=== PATIENT | male | born 1955 | race Caucasian/White ===

== ENCOUNTER 2021-09-06 10:01 | Observation (INO) ==
[2021-09-06] MEDS ORDERED: Lactated Ringers 1000 ml BAG 1,000 ML IV ONE (10:04)
[2021-09-06] MEDS ORDERED: levETIRAcetam 1000MG IVPREMIX 1,000 MG/100 ML BAG IVPB ONE (10:06)
[2021-09-06 10:16] LABS: Hematocrit 50 % (42-52); Hemoglobin 17.1 g/dL (14.0-18.0); Mean Corpuscular HGB Conc 35 g/dL (31-36); Mean Corpuscular Hemoglobin 31 pg (27-31); Mean Corpuscular Volume 89 fL (80-94); Mean Platelet Volume 6.9 fL (7.4-10.4); Platelet Count 361 10^3/uL (150-450); Red Blood Count 5.56 10^6 /uL (4.18-5.48); Red Cell Distribution Width 14 % (10-15); White Blood Count 14.9 10^3/uL (3.5-10.8)
[2021-09-06 10:35] LABS: Albumin 3.9 g/dL (3.2-5.2); Albumin/Globulin Ratio 1.5 (1-3); Calcium 9.4 mg/dL (8.6-10.3); Globulin 2.6 g/dL (2-4); Potassium 3.7 mmol/L (3.5-5.0); Total Protein 6.5 g/dL (6.4-8.9); eGFR CKD-EPI 85.1 (>60)
[2021-09-06 11:22] LABS: ABS Basophils 0.1 10^3/ul (0-0.2); ABS Eosinophils 0.1 10^3/ul (0-0.6); ABS Lymphocytes 2.5 10^3/ul (1.0-4.8); ABS Monocytes 1.3 10^3/ul (0-0.8); Eosinophil % 0.4 %; Lymphocyte % 16.7 %
[2021-09-06] MEDS ORDERED: NS 0.9% 1000 ml BAG 1,000 ML IV ONE (12:49)
[2021-09-06] MEDS ORDERED: Ondansetron 4 mg VIAL 2 MG/ML 2 ml VIAL IV PRN (13:33)
[2021-09-06] MEDS ORDERED: NS 0.9% 1000 ml BAG 1,000 ML IV SCH (13:45)
[2021-09-06 14:59] LABS: Rapid COVID-19 Molecular Undetected (Undetected)
[2021-09-06 16:25] LABS: Calcium 7.8 mg/dL (8.6-10.3); Potassium 3.4 mmol/L (3.5-5.0); eGFR CKD-EPI 99.2 (>60)
[2021-09-07 06:24] LABS: Hematocrit 46 % (42-52); Hemoglobin 15.8 g/dL (14.0-18.0); Mean Corpuscular HGB Conc 34 g/dL (31-36); Mean Corpuscular Hemoglobin 31 pg (27-31); Mean Corpuscular Volume 91 fL (80-94); Mean Platelet Volume 7.2 fL (7.4-10.4); Platelet Count 233 10^3/uL (150-450); Red Blood Count 5.08 10^6 /uL (4.18-5.48); Red Cell Distribution Width 14 % (10-15); White Blood Count 11.5 10^3/uL (3.5-10.8)
[2021-09-07 06:39] LABS: eGFR CKD-EPI 102.5 (>60)
[2021-09-07 08:38] LABS: RBC Morphology Normal (Normal)
[2021-09-07 08:39] LABS: ABS Eosinophils 0.1 10^3/ul (0-0.6); ABS Monocytes 0.8 10^3/ul (0-0.8); ABS Neutrophils 8.6 10^3/ul (1.5-7.7); Eosinophil % 0.6 %; Lymphocyte % 17.4 %
[2021-09-07] MEDS ORDERED: Multivitamins/Minerals TAB PO SCH (09:00)
[2021-09-07 15:51] VITALS: BP 97/59
== END 2021-09-07 17:15 | disposition home or self-care (01) ==
LOC: ED 10:01 → SSU 10:01 → EDHOLD 10:01 → SSU 15:33
PROVIDERS: ADMIT Hospitalist; ATTEND Internal Medicine

== ENCOUNTER 2021-10-14 09:42 | Inpatient (IN) ==
[2021-10-14 10:09] LABS: Hematocrit 48 % (42-52); Hemoglobin 16.4 g/dL (14.0-18.0); Mean Corpuscular HGB Conc 34 g/dL (31-36); Mean Corpuscular Hemoglobin 31 pg (27-31); Mean Corpuscular Volume 90 fL (80-94); Mean Platelet Volume 6.3 fL (7.4-10.4); Platelet Count 290 10^3/uL (150-450); Red Blood Count 5.34 10^6 /uL (4.18-5.48); Red Cell Distribution Width 15 % (10-15)
[2021-10-14 10:27] LABS: ALT 30 U/L (7-52); AST 20 U/L (13-39); Albumin 3.9 g/dL (3.2-5.2); Albumin/Globulin Ratio 1.3 (1-3); Alkaline Phosphatase 75 U/L (35-149); Anion Gap 9 mmol/L (2-11); Blood Urea Nitrogen 13 mg/dL (6-24); C Reactive Protein 49.38 mg/L (<8.01); CO2 Carbon Dioxide 30 mmol/L (22-32); Calcium 9.4 mg/dL (8.6-10.3); Chloride 93 mmol/L (101-111); Creatine Kinase 12 U/L (10-223); Globulin 2.9 g/dL (2-4); Glucose 142 mg/dL (70-100); Potassium 3.9 mmol/L (3.5-5.0); Sodium 132 mmol/L (135-145); Total Protein 6.8 g/dL (6.4-8.9); eGFR CKD-EPI 70.3 (>60)
[2021-10-14 10:29] LABS: Activated Partial Thrombo Time 33.8 seconds (26.0-38.0)
[2021-10-14] MEDS ORDERED: NS 0.9% 1000 ml BAG 1,000 ML IV ONE ×2 (11:15→15:02)
[2021-10-14 11:22] LABS: ABS Basophils 0.1 10^3/ul (0-0.2); ABS Eosinophils 0.1 10^3/ul (0-0.6); ABS Lymphocytes 2.6 10^3/ul (1.0-4.8); ABS Monocytes 0.5 10^3/ul (0-0.8); ABS Neutrophils 5.8 10^3/ul (1.5-7.7); Eosinophil % 0.6 %; Lymphocyte % 28.8 %; Nucleated Red Blood Cells % 0.1
[2021-10-14] MEDS ORDERED: Iohexol 350 (CONTRAST) 500 ML MDV IV ONE (12:22)
[2021-10-14] MEDS ORDERED: Enoxaparin 100 MG/ML SYR SUBCUT ONE (14:03)
[2021-10-14 14:13] LABS: Urine Appearance Cloudy; Urine Bilirubin Negative (Negative); Urine Blood 1+ (Negative); Urine Color Yellow; Urine Glucose Negative (Negative); Urine Ketones Negative (Negative); Urine Nitrite Negative (Negative); Urine Protein Negative (Negative); Urine Specific Gravity 1.017 (1.002-1.030); Urine Urobilinogen Negative (Negative)
[2021-10-14 14:19] LABS: Urine Bacteria 2+ (Absent); Urine Red Blood Cell 1+(3-5/hpf) (Absent); Urine Squamous Epithelial Cell Present (Absent); Urine White Blood Cell 3+(>20/hpf) (Absent)
[2021-10-14] MEDS ORDERED: cefTRIAXone 1 gm/50 mL NS BAG 1 GM/50 ML BAG IV ONE (14:27)
[2021-10-14] MEDS ORDERED: Lactated Ringers 1000 ml BAG 1,000 ML IV SCH (17:00)
[2021-10-14] MEDS ORDERED: GRANISETRON HCL 1 MG PO SCH ×3 (20:20→21:00)
[2021-10-14] MEDS ORDERED: TEMOZOLOMIDE 140 MG PO SCH ×2 (21:00)
[2021-10-14] MEDS ORDERED: TEMOZOLOMIDE 20 MG PO SCH ×3 (21:00)
[2021-10-14] MEDS ORDERED: Enoxaparin 100 MG/ML SYR SUBCUT SCH (23:00)
[2021-10-15] MEDS: Enoxaparin 100 MG/ML SYR SUBCUT SCH ×2 (01:24→12:37)
[2021-10-15 06:37] LABS: Hematocrit 46 % (42-52); Hemoglobin 15.6 g/dL (14.0-18.0); Mean Corpuscular HGB Conc 34 g/dL (31-36); Mean Corpuscular Hemoglobin 31 pg (27-31); Mean Corpuscular Volume 91 fL (80-94); Mean Platelet Volume 6.3 fL (7.4-10.4); Platelet Count 242 10^3/uL (150-450); Red Blood Count 5.08 10^6 /uL (4.18-5.48); Red Cell Distribution Width 15 % (10-15); White Blood Count 6.4 10^3/uL (3.5-10.8)
[2021-10-15 06:39] LABS: ABS Eosinophils 0.1 10^3/ul (0-0.6); ABS Lymphocytes 1.7 10^3/ul (1.0-4.8); ABS Monocytes 0.5 10^3/ul (0-0.8); ABS Neutrophils 4.1 10^3/ul (1.5-7.7); Eosinophil % 1.1 %; Lymphocyte % 27.1 %; Nucleated Red Blood Cells % 0.1
[2021-10-15 06:46] LABS: Calcium 9.5 mg/dL (8.6-10.3); Potassium 4.1 mmol/L (3.5-5.0)
[2021-10-15 06:51] LABS: eGFR CKD-EPI 105.2 (>60)
[2021-10-15 11:49] VITALS: BP 123/79
[2021-10-15] MEDS ORDERED: cefTRIAXone 1 gm/50 mL NS BAG 1 GM/50 ML BAG IVPB SCH ×2 (14:08→15:00)
== END 2021-10-15 17:15 | disposition home or self-care (01) | DRG 134 ==
LOC: ED 09:42 → EDHOLD 16:59 → MEDTELE 20:25
PROVIDERS: ADMIT Student in an Organized Health Care Education/Training Program; ATTEND Student in an Organized Health Care Education/Training Program

== ENCOUNTER 2021-10-15 23:49 | Observation (INO) ==
[2021-10-16 00:24] LABS: Hematocrit 49 % (42-52); Hemoglobin 16.9 g/dL (14.0-18.0); Mean Corpuscular HGB Conc 34 g/dL (31-36); Mean Corpuscular Hemoglobin 31 pg (27-31); Mean Corpuscular Volume 90 fL (80-94); Mean Platelet Volume 6.3 fL (7.4-10.4); Platelet Count 293 10^3/uL (150-450); Red Blood Count 5.48 10^6 /uL (4.18-5.48); Red Cell Distribution Width 14 % (10-15); White Blood Count 6.1 10^3/uL (3.5-10.8)
[2021-10-16 00:25] LABS: ABS Lymphocytes 1.5 10^3/ul (1.0-4.8); ABS Monocytes 0.4 10^3/ul (0-0.8); ABS Neutrophils 4.1 10^3/ul (1.5-7.7); Eosinophil % 0.7 %; Lymphocyte % 23.9 %; Nucleated Red Blood Cells % 0.3
[2021-10-16 00:40] LABS: Albumin 4.3 g/dL (3.2-5.2); Albumin/Globulin Ratio 1.3 (1-3); Calcium 9.7 mg/dL (8.6-10.3); Globulin 3.3 g/dL (2-4); Magnesium 1.9 mg/dL (1.9-2.7); Potassium 3.7 mmol/L (3.5-5.0); Total Bilirubin 0.5 mg/dL (0.2-1.0); Total Protein 7.6 g/dL (6.4-8.9); eGFR CKD-EPI 78.4 (>60)
[2021-10-16 00:44] LABS: INR 1.04 (0.86-1.15)
[2021-10-16 01:12] LABS: TSH Ultra Thyroid Stim Horm 2.16 mcIU/mL (0.34-5.60)
[2021-10-16] MEDS ORDERED: Ondansetron 4 mg VIAL 2 MG/ML 2 ml VIAL IV ONE (02:45)
[2021-10-16] MEDS ORDERED: [UNRECOGNIZED DRUG - OTHER] IVPB ONE (04:06)
[2021-10-16] MEDS ORDERED: NS 0.9% 1000 ml BAG 1,000 ML IV SCH (04:45)
[2021-10-16] MEDS ORDERED: Enoxaparin 100 MG/ML SYR SUBCUT SCH (08:00)
[2021-10-16] MEDS ORDERED: levETIRAcetam 1000MG IVPREMIX 1,000 MG/100 ML BAG IVPB SCH (09:00)
[2021-10-16 16:12] VITALS: BP 123/83
[2021-10-16] MEDS ORDERED: levETIRAcetam 500 MG IVPREMIX 500 MG/100 ML BAG IV SCH (17:00)
== END 2021-10-16 16:16 | disposition home or self-care (01) ==
LOC: ED 23:49 → EDHOLD 23:49
PROVIDERS: ADMIT Student in an Organized Health Care Education/Training Program; ATTEND Student in an Organized Health Care Education/Training Program

== ENCOUNTER 2021-11-15 14:47 | Inpatient (IN) ==
[2021-11-15] MEDS ORDERED: levETIRAcetam IV 1,500 MG in NS 0.9% 100 ml BAG 100 ML IVPB ONE (14:58)
[2021-11-15] MEDS ORDERED: Lactated Ringers 1000 ml BAG 1,000 ML IV ONE ×3 (15:25→21:44)
[2021-11-15 17:05] LABS: Hematocrit 53 % (42-52); Hemoglobin 17.5 g/dL (14.0-18.0); Mean Corpuscular HGB Conc 33 g/dL (31-36); Mean Corpuscular Hemoglobin 30 pg (27-31); Mean Corpuscular Volume 91 fL (80-94); Mean Platelet Volume 6.6 fL (7.4-10.4); Platelet Count 367 10^3/uL (150-450); Red Blood Count 5.81 10^6 /uL (4.18-5.48); Red Cell Distribution Width 15 % (10-15); White Blood Count 12.3 10^3/uL (3.5-10.8)
[2021-11-15 17:21] LABS: ABS Lymphocytes 1.5 10^3/ul (1.0-4.8); ABS Monocytes 0.4 10^3/ul (0-0.8); ABS Neutrophils 10.3 10^3/ul (1.5-7.7); Eosinophil % 0.4 %
[2021-11-15 17:43] LABS: Albumin 3.2 g/dL (3.2-5.2); Albumin/Globulin Ratio 1.2 (1-3); Calcium 9.1 mg/dL (8.6-10.3); Globulin 2.6 g/dL (2-4); Magnesium 2.1 mg/dL (1.9-2.7); Potassium 4.3 mmol/L (3.5-5.0); Total Bilirubin 0.6 mg/dL (0.2-1.0); Total Protein 5.8 g/dL (6.4-8.9); eGFR CKD-EPI 59.7 (>60)
[2021-11-15] MEDS ORDERED: Iodixanol (CONTRAST) 320 MG/ML 100 ML SDV IV ONE (17:51)
[2021-11-15] MEDS: Vancomycin SOL ORALSYR 50 MG/ML ML PO SCH (22:09)
[2021-11-16 06:49] LABS: Hematocrit 47 % (42-52); Mean Corpuscular HGB Conc 34 g/dL (31-36); Mean Corpuscular Hemoglobin 31 pg (27-31); Mean Corpuscular Volume 90 fL (80-94); Mean Platelet Volume 6.8 fL (7.4-10.4); Platelet Count 337 10^3/uL (150-450); Red Cell Distribution Width 15 % (10-15); White Blood Count 9.7 10^3/uL (3.5-10.8)
[2021-11-16 07:04] LABS: Calcium 8.5 mg/dL (8.6-10.3); Potassium 3.7 mmol/L (3.5-5.0); eGFR CKD-EPI 102.9 (>60)
[2021-11-16 07:19] LABS: ABS Lymphocytes 1.8 10^3/ul (1.0-4.8); ABS Monocytes 0.4 10^3/ul (0-0.8); ABS Neutrophils 7.4 10^3/ul (1.5-7.7); Eosinophil % 0.5 %; Lymphocyte % 18.6 %
[2021-11-16] MEDS: Vancomycin SOL ORALSYR 50 MG/ML ML PO SCH ×4 (08:18→21:21)
[2021-11-16 12:43] LABS: Urine Appearance Clear; Urine Bilirubin Negative (Negative); Urine Blood Negative (Negative); Urine Color Amber; Urine Glucose Negative (Negative); Urine Ketones 1+ (Negative); Urine Nitrite Negative (Negative); Urine Protein 1+(30 mg/dL) (Negative); Urine Specific Gravity 1.057 (1.002-1.030); Urine Urobilinogen Negative (Negative)
[2021-11-16 12:46] LABS: Urine Bacteria Absent (Absent); Urine Red Blood Cell Trace(0-2/hpf) (Absent); Urine Squamous Epithelial Cell Present (Absent); Urine White Blood Cell Absent (Absent)
[2021-11-17 05:58] LABS: Hematocrit 49 % (42-52); Hemoglobin 16.7 g/dL (14.0-18.0); Mean Corpuscular HGB Conc 34 g/dL (31-36); Mean Corpuscular Hemoglobin 30 pg (27-31); Mean Corpuscular Volume 90 fL (80-94); Mean Platelet Volume 6.3 fL (7.4-10.4); Platelet Count 324 10^3/uL (150-450); Red Cell Distribution Width 14 % (10-15); White Blood Count 8.8 10^3/uL (3.5-10.8)
[2021-11-17 06:04] LABS: ABS Eosinophils 0.1 10^3/ul (0-0.6); ABS Lymphocytes 1.6 10^3/ul (1.0-4.8); ABS Monocytes 0.4 10^3/ul (0-0.8); ABS Neutrophils 6.7 10^3/ul (1.5-7.7); Eosinophil % 0.7 %; Lymphocyte % 18.1 %; Nucleated Red Blood Cells % 0.2
[2021-11-17 06:13] LABS: Potassium 3.7 mmol/L (3.5-5.0); eGFR CKD-EPI 98.8 (>60)
[2021-11-17] MEDS ORDERED: Potassium Chlor 20 meq TAB.ER PO ONE (06:38)
[2021-11-17 08:32] LABS: Magnesium 1.8 mg/dL (1.9-2.7)
[2021-11-17] MEDS: Nystatin TOP POWDER 15 GM BTL TOPICAL SCH ×2 (09:00→21:12)
[2021-11-17] MEDS: Vancomycin SOL ORALSYR 50 MG/ML ML PO SCH ×4 (09:55→19:56)
[2021-11-17] MEDS ORDERED: levETIRAcetam IV 500 MG/5 ML VIAL SCH (10:00)
[2021-11-17] MEDS: levETIRAcetam LIQ 500 MG/5 ML UDC PO SCH ×3 (12:28→19:56)
[2021-11-17] MEDS ORDERED: Gadoteridol (CONTRAST) 279.3 MG/ML 10 ML IV ONE (13:50)
[2021-11-18 06:48] LABS: Hematocrit 47 % (42-52); Hemoglobin 15.9 g/dL (14.0-18.0); Mean Corpuscular HGB Conc 34 g/dL (31-36); Mean Corpuscular Hemoglobin 31 pg (27-31); Mean Corpuscular Volume 90 fL (80-94); Mean Platelet Volume 6.5 fL (7.4-10.4); Platelet Count 324 10^3/uL (150-450); Red Blood Count 5.18 10^6 /uL (4.18-5.48); Red Cell Distribution Width 15 % (10-15); White Blood Count 8.1 10^3/uL (3.5-10.8)
[2021-11-18 06:52] LABS: Potassium 4.2 mmol/L (3.5-5.0); eGFR CKD-EPI 102.5 (>60)
[2021-11-18 06:53] LABS: ABS Eosinophils 0.1 10^3/ul (0-0.6); ABS Lymphocytes 1.6 10^3/ul (1.0-4.8); ABS Monocytes 0.5 10^3/ul (0-0.8); Eosinophil % 0.8 %; Lymphocyte % 19.3 %; Nucleated Red Blood Cells % 0.1
[2021-11-18] MEDS: Vancomycin SOL ORALSYR 50 MG/ML ML PO SCH ×4 (11:05→20:05)
[2021-11-18] MEDS: Lansoprazole SUSP ORALSYR 3 MG/ML PO SCH (11:05)
[2021-11-18] MEDS: Dexamethasone Oral Solution 1 MG/ML 10 ML UDC (10 MG) PO SCH (11:06)
[2021-11-18] MEDS: levETIRAcetam LIQ 500 MG/5 ML UDC PO SCH ×2 (11:06→20:05)
[2021-11-18] MEDS: Nystatin TOP POWDER 15 GM BTL TOPICAL SCH ×2 (11:48→20:09)
[2021-11-19 05:26] LABS: Hematocrit 44 % (42-52); Hemoglobin 14.9 g/dL (14.0-18.0); Mean Corpuscular HGB Conc 34 g/dL (31-36); Mean Corpuscular Hemoglobin 31 pg (27-31); Mean Corpuscular Volume 90 fL (80-94); Mean Platelet Volume 6.2 fL (7.4-10.4); Platelet Count 302 10^3/uL (150-450); Red Blood Count 4.83 10^6 /uL (4.18-5.48); Red Cell Distribution Width 14 % (10-15); White Blood Count 7.7 10^3/uL (3.5-10.8)
[2021-11-19 05:33] LABS: ABS Lymphocytes 1.4 10^3/ul (1.0-4.8); ABS Monocytes 0.4 10^3/ul (0-0.8); ABS Neutrophils 5.8 10^3/ul (1.5-7.7); Eosinophil % 0.6 %; Lymphocyte % 18.4 %; Nucleated Red Blood Cells % 0.1
[2021-11-19 05:43] LABS: Calcium 8.5 mg/dL (8.6-10.3); Potassium 3.9 mmol/L (3.5-5.0); eGFR CKD-EPI 102.5 (>60)
[2021-11-19] MEDS: Dexamethasone Oral Solution 1 MG/ML 10 ML UDC (10 MG) PO SCH (08:43)
[2021-11-19] MEDS: levETIRAcetam LIQ 500 MG/5 ML UDC PO SCH (08:44)
[2021-11-19] MEDS: Lansoprazole SUSP ORALSYR 3 MG/ML PO SCH (08:45)
[2021-11-19] MEDS: Vancomycin SOL ORALSYR 50 MG/ML ML PO SCH (08:45)
[2021-11-19] MEDS: Nystatin TOP POWDER 15 GM BTL TOPICAL SCH (11:24)
[2021-11-19 12:07] VITALS: BP 121/74
== END 2021-11-19 15:25 | disposition home or self-care (01) | DRG 720 ==
LOC: ED 14:47 → MEDTELE 14:47 → SUATTDRO 22:10 → MEDTELE 11-16 02:31
PROVIDERS: ADMIT Internal Medicine; ATTEND Internal Medicine